=== PATIENT | male | born 1990 | race Caucasian/White ===

== ENCOUNTER 2020-05-25 03:10 | Emergency (ER) | payer OTHER, SELFPAY ==
[2020-05-25 03:16] VITALS: BP 125/87; PULSE 76; RESP 16; TEMP 36.8; O2SAT 99
[2020-05-25 04:09] LABS: HIV 1 & 2 Antibody Non-Reactive (Non-Reactiv); HIV 1 & 2 Antigen Non-Reactive (Non-Reactiv)
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
[2020-05-25 04:20] LABS: Hepatitis B Surface AB 60.9 (0-8.5); Hepatitis B Surface Antigen Non-Reactive (Nonreactive); Hepatitis C Virus Antibody Non-Reactive (Nonreactive)
== END 2020-05-25 05:16 | disposition home or self-care (01) ==
PROVIDERS: Emergency Provider Emergency Medicine; PCP Nurse Practitioner Family
DX: Z77.21 Contact with and (suspected) exposure to potentially hazardous body fluids (principal); Y99.0 Civilian activity done for income or pay
CPT/HCPCS: 86706; 86803; 87340; 87806; 99281